=== PATIENT | female | born 1970 | race Caucasian/White ===

== ENCOUNTER → 2020-08-14 13:02 | Outpatient (CLI) | payer BC, SELFPAY ==
--- NOTE | 2020-08-14 13:16 | XR_ITS ---
PROCEDURE: XR CHEST 2V CLINICAL HISTORY: SOB, Preop COMPARISON: No exams were available for comparison FINDINGS: Lungs are well expanded and clear without infiltrate, pulmonary edema, pleural effusion, suspicious nodule or mass by chest x-ray. There are degenerative changes throughout the skeleton. IMPRESSION: No acute findings. Dictated by: Jessica Cortez MD 08/14/2020 15:27 Jessica Cortez MD in [place] 08/14/2020 15:27
== END ==
PROVIDERS: PCP Family Medicine; Visit Provider Family Medicine
DX: Z01.818 Encounter for other preprocedural examination (principal)
CPT/HCPCS: 71046

== ENCOUNTER → 2020-08-21 12:54 | Outpatient (CLI) | payer BC, SELFPAY ==
[2020-08-21 13:22] LABS: Hemoglobin A1C 10.3 % (4.0-6.0)
== END ==
PROVIDERS: Visit Provider Family Medicine
DX: R73.09 Other abnormal glucose (principal)
CPT/HCPCS: 36415; 83036

== ENCOUNTER → 2020-09-18 14:02 | Outpatient (CLI) | payer BC, SELFPAY ==
[2020-09-18 14:56] LABS: Hemoglobin A1C 8.9 % (4.0-6.0)
== END ==
PROVIDERS: Visit Provider Family Medicine
DX: E11.59 Type 2 diabetes mellitus with other circulatory complications (principal)
CPT/HCPCS: 36415; 83036